=== PATIENT | female | born 1945 | race Caucasian/White ===

== ENCOUNTER → 2024-01-07 12:34 | Outpatient (REF) | payer OTHER, SELFPAY | LOC: WOUND 12:34 | PROVIDERS: ATTENDING PHYSICIAN Surgery | DX: L97.412 Non-pressure chronic ulcer of right heel and midfoot with fat layer exposed (principal); I87.2 Venous insufficiency (chronic) (peripheral); I73.9 Peripheral vascular disease, unspecified | CPT/HCPCS: 11042; 99204 ==

== ENCOUNTER → 2024-01-14 11:01 | Outpatient (REF) | payer OTHER, SELFPAY | LOC: WOUND 11:01 | PROVIDERS: ATTENDING PHYSICIAN Surgery | DX: L97.412 Non-pressure chronic ulcer of right heel and midfoot with fat layer exposed (principal); I87.2 Venous insufficiency (chronic) (peripheral); I73.9 Peripheral vascular disease, unspecified | CPT/HCPCS: 11042 ==

== ENCOUNTER → 2024-01-26 10:27 | Outpatient (REF) | payer OTHER, SELFPAY | LOC: WOUND 10:27 | PROVIDERS: ATTENDING PHYSICIAN Surgery | DX: L97.412 Non-pressure chronic ulcer of right heel and midfoot with fat layer exposed (principal); I87.2 Venous insufficiency (chronic) (peripheral); I73.9 Peripheral vascular disease, unspecified | CPT/HCPCS: 11042 ==

== ENCOUNTER → 2024-02-08 14:39 | Outpatient (REF) | payer OTHER, SELFPAY | LOC: WOUND 14:39 | PROVIDERS: ATTENDING PHYSICIAN Surgery | DX: L97.412 Non-pressure chronic ulcer of right heel and midfoot with fat layer exposed (principal); I87.2 Venous insufficiency (chronic) (peripheral); I73.9 Peripheral vascular disease, unspecified | CPT/HCPCS: 11042 ==

== ENCOUNTER → 2024-02-22 14:31 | Outpatient (REF) | payer OTHER, SELFPAY | LOC: WOUND 14:31 | PROVIDERS: ATTENDING PHYSICIAN Surgery | DX: L97.412 Non-pressure chronic ulcer of right heel and midfoot with fat layer exposed (principal); I87.2 Venous insufficiency (chronic) (peripheral); I73.9 Peripheral vascular disease, unspecified | CPT/HCPCS: 11042 ==

== ENCOUNTER → 2024-03-07 14:38 | Outpatient (REF) | payer OTHER, SELFPAY | LOC: WOUND 14:38 | PROVIDERS: ATTENDING PHYSICIAN Surgery | DX: L97.412 Non-pressure chronic ulcer of right heel and midfoot with fat layer exposed (principal); I87.2 Venous insufficiency (chronic) (peripheral); I73.9 Peripheral vascular disease, unspecified | CPT/HCPCS: 99213 ==

== ENCOUNTER → 2024-03-11 13:00 | Outpatient (REF) | payer OTHER, MEDICARE, SELFPAY | LOC: RAD 13:00 | PROVIDERS: ATTENDING PHYSICIAN Surgery; FAMILY PHYSICIAN Family Medicine | DX: L97.412 Non-pressure chronic ulcer of right heel and midfoot with fat layer exposed (principal); I73.9 Peripheral vascular disease, unspecified | CPT/HCPCS: 93922; 93925 ==

== ENCOUNTER → 2024-03-15 10:45 | Outpatient (REF) | payer OTHER, MEDICARE, SELFPAY | LOC: RAD 10:45 | PROVIDERS: ATTENDING PHYSICIAN Surgery; FAMILY PHYSICIAN Family Medicine | DX: L97.412 Non-pressure chronic ulcer of right heel and midfoot with fat layer exposed (principal); I87.2 Venous insufficiency (chronic) (peripheral) | CPT/HCPCS: 93971 ==

== ENCOUNTER → 2024-03-25 13:29 | Outpatient (REF) | payer OTHER, MEDICARE, SELFPAY | LOC: WOUND 13:29 | PROVIDERS: ATTENDING PHYSICIAN Surgery | DX: L97.412 Non-pressure chronic ulcer of right heel and midfoot with fat layer exposed (principal); I87.2 Venous insufficiency (chronic) (peripheral); I73.9 Peripheral vascular disease, unspecified | CPT/HCPCS: 99212 ==